=== PATIENT | female | born 1975 | race Caucasian/White ===

== ENCOUNTER → 2021-12-14 | Day surgery (SDC) | payer OTHER ==
[~2021-12-14] VITALS: Ht 162.6 cm; Wt 132.4 kg
[~2021-12-14] MED LIST: ACETAMINOPHEN500 M1 PO; ATORVASTATIN CA10 MG PO; BACLOFEN10 MG PO; BLACK ELDERBER1 EACH PO; COLESTIPOL HCL1 GM PO; HYDROXYZINE HCL50 MG PO; LOSARTAN POTASS50 MG PO; MELATONIN5 M2 PO; MELOXICAM7.5 MG PO; METFORMIN HCL750 MG PO; NEURONTIN300 MG PO; VENTOLIN HFA18 GM INH; VITAMIN B122500 MC1 PO; VITAMIN D310 MC3 PO
[2021-12-14 10:56] LABS: HCG (URINE) SCREEN NEGATIVE (NEGATIVE)
[2021-12-14 11:22] LABS: HCT 36.6 % (37.0-47.0); HGB 12.2 g/dl (12.5-16.0); MCH 28.2 pg (25.0-31.0); MCHC 33.3 g/dL (32.0-36.0); MCV 84.7 fL (78.0-100.0); MPV 9.1 fL (6.0-9.5); RBC 4.32 M/uL (4.20-5.40); RDW 13.5 % (11.5-14.0); WBC 4.6 K/uL (4.0-10.5)
[2021-12-14 11:44] LABS: ALBUMIN 3.3 g/dL (3.4-5.0); BILIRUBIN - TOTAL 0.2 mg/dL (0.2-1.0); BUN/CREAT RATIO (CALC) 13.2 RATIO; CREATININE 0.68 mg/dL (0.51-0.95); GLOBULIN (CALCULATION) 4.4 g/dL; TOTAL PROTEIN 7.7 g/dL (6.4-8.2)
== END | disposition home or self-care (01) ==
LOC: FAS 09:30
PROVIDERS: Orthopaedic Surgery
DX: G56.03 Carpal tunnel syndrome, bilateral upper limbs (principal)
CPT/HCPCS: 36415; 80053; 84703; 93005; J1100; J1885; J2250; J2405; J2704; J3010; J7120

== ENCOUNTER → 2022-03-08 | Day surgery (SDC) | payer OTHER ==
[~2022-03-08] VITALS: Ht 162.6 cm; Wt 127.0 kg
[~2022-03-08] MED LIST changes: +DICLOFENAC SODI75 MG PO; +HAIR, SKIN & N1 EACH PO; +HCTZ25 MG PO; +OZEMPIC0.25 MG/0. SC
[2022-03-08 11:49] LABS: HCG (URINE) SCREEN NEGATIVE (NEGATIVE)
[2022-03-08 13:20] LABS: BUN/CREAT RATIO (CALC) 23.3 RATIO; CREATININE 0.73 mg/dL (0.51-0.95); POTASSIUM 4.4 mmol/L (3.5-5.1)
== END | disposition home or self-care (01) ==
LOC: FAS 01-18 13:45
PROVIDERS: Orthopaedic Surgery
DX: G56.01 Carpal tunnel syndrome, right upper limb (principal); I10 Essential (primary) hypertension; E11.9 Type 2 diabetes mellitus without complications
CPT/HCPCS: 36415; 80048; 84703; J2250; J2405; J2704; J3010; J7120